=== PATIENT | male | born 2000 | race Caucasian/White ===

== ENCOUNTER 2020-12-15 09:24 | Outpatient (CLI) | payer OTHER | END 2020-12-15 09:25 | disposition home or self-care (01) | LOC: TBSIIMAG 09:24 | PROVIDERS: ATTEND Orthopaedic Surgery | DX: S83.512A Sprain of anterior cruciate ligament of left knee, initial encounter (principal); S76.112A Strain of left quadriceps muscle, fascia and tendon, initial encounter; M76.52 Patellar tendinitis, left knee; R60.0 Localized edema; S83.012A Lateral subluxation of left patella, initial encounter; M22.42 Chondromalacia patellae, left knee; M79.4 Hypertrophy of (infrapatellar) fat pad; E88.89 Other specified metabolic disorders ==